=== PATIENT | female | born 1945 | race Caucasian/White ===

== ENCOUNTER 2017-10-02 06:27 | Inpatient (IN) | payer OTHER ==
[2017-09-29 11:47] LABS: APTT 25.1 Seconds (25.0-31.3)
[2017-09-29 11:53] LABS: URINE BILIRUBIN NEGATIVE (Negative); URINE BLOOD TRACE (Negative); URINE CLARITY CLEAR; URINE COLOR YELLOW; URINE GLUCOSE-RANDOM NEGATIVE (Negative); URINE KETONES NEGATIVE (Negative); URINE LEUKOCYTES-REFLEX NEGATIVE (Negative); URINE NITRITE-REFLEX NEGATIVE (Negative); URINE PROTEIN NEGATIVE (Negative); URINE SPECIFIC GRAVITY >= 1.030 (1.005-1.030); URINE UROBILINOGEN 0.2 E.U./dl (0.2-1.0)
--- NOTE | 2017-09-29 13:46 | EKG ---
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1945 Requested By: Jose Carlos Clayton Order Number: [id number] Reading MD: Abdias Naqvi Measurements Intervals [place] Rate: 77 P: 38 NV: 154 QRS: -36 QRSD: 89 T: 18 QT: 404 QTc: 458 Interpretive Statements Sinus rhythm Probable left atrial enlargement Left ventricular hypertrophy No previous ECG available for comparison Electronically Signed On 09-29-2017 13:45:57 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
[~2017-10-02] VITALS: Ht 170.2 cm; Wt 81.6 kg
[~2017-10-02 06:27] MED LIST: LEVOXYL25 MCG PO; PREDNISONE 20 M20 MG PO
[2017-10-02 13:58] VITALS: BP 148/74
--- NOTE | 2017-10-02 18:24 | NUR ---
ASSUMED CARE OF PATIENT AFTER TRANSFER FROM PACU AT 1815. ASSESSMENT COMPLETED AND CHATED. VSS ON 2 LITERS 02. PATIENT ORIENTED TO ROOM. FLUIDS STARTED AND INFUSING ORDERED. NO COMPLAINTS OF PAIN OR NAUSEA AT THIS TIME. PATIENT HAS BULKY DRESSING TO LEFT KNEE; CLEAN DRY AND INTACT. POLAR PACK APPLIED OVER DRESSING. HEMOVAC IN PLACE AND PATENT. CALL LIGHT IS WITHIN REACH. NURSING WILL CONTINUE TO MONITOR.
[2017-10-02 18:29] VITALS: BP 147/74
[2017-10-03] VITALS: BP 149/86
[2017-10-03 03:48] VITALS: BP 112/70
[2017-10-03 04:34] LABS: HEMATOCRIT 35.8 % (37.0-47.0); HEMOGLOBIN 12.2 gm/dL (12.0-15.0)
--- NOTE | 2017-10-03 04:54 | NUR ---
PATIENT ORIENTED X4 ON HOURLY ROUNDS. VOIDING ADEQUATELY PER BEDPAN. PAIN CONTROLLED WITH ORAL MEDICATIONS. DRESSING TO LEFT KNEE CLEAN, DRY AND INTACT WITH POLAR CARE IN PLACE. VITALS STABLE ON 2L, CAPNO. CONTINUE TO MONITOR.
[2017-10-03 08:15] VITALS: BP 130/71
--- NOTE | 2017-10-03 12:46 | NUR ---
RECIEVED O.T. EVAL AND TX ORDER. WILL DEFER TO P.T. AND NURSING AT THIS TIME. PLEASE ORDER FURTHER O.T. SERVICES IF NEEDED.
--- NOTE | 2017-10-03 13:04 | NUR ---
CM ASSESSMENT: Pt is A&O. Resides at home with her . Normally independent with ADLS. Pt admitted for left knee DJD. Pt stated that she has 11 stairs to get into her home and is concerned with how she will get into her home. After discussing options, Pt states that she thinks that she will be able to enter through her garage, because the stairs are carpeted. Pt has her own walker in her room. HH to be set up through [facility] [phone], [phone]. DC orders, facesheet, H&P, and orth orders to be faxed to [facility] at [facility]. Pt anticipates that she will be ready to sc tomorrow. Following.
[2017-10-03 16:00] VITALS: BP 115/62
--- NOTE | 2017-10-03 16:41 | NUR ---
PATIENT REMAINED ALERT AND ORIENTED X'S 4. VITAL SIGNS AND SPO2 STABLE. IV CLEAN, FLUSHING FLUIDS. TOLERATED DIET, NO NAUSEA AND VOMITING. PAIN WELL CONTROLLED WITH PAIN MEDS. VOIDED WITHOUT ISSUE. COMPLETED CPM 0-55 DEGREES. HEMOVAC PULLED THIS MORNING. COMPLETED PT/OT, WALKED THE HALLS. POLAR CARE, YELLOW SOCKS, TEDS, SCD'S IN PLACE. COMPLETED HOURLY ROUNDING. CALL LIGHT WITHIN REACH. WILL CONTINUE TO MONITOR.
[2017-10-03 20:00] VITALS: BP 149/75
[2017-10-04 00:40] VITALS: BP 112/59
[2017-10-04 03:31] VITALS: BP 112/59
[2017-10-04 04:12] LABS: HEMOGLOBIN 11.6 gm/dL (12.0-15.0)
[2017-10-04 08:05] VITALS: BP 110/65
--- NOTE | 2017-10-04 08:08 | NUR ---
Alert and oriented x 4. L knee dressing intact with polarcare in place. She was a 10/10 at start of shift but we have been medicating by giving something every 2 hours. This am she rates pain at 2 or 3. She is in CPM this am. She did sleep well.
[2017-10-04] MEDS ORDERED: LIDOPATCH1 EACH TOP (14:36)
[2017-10-04] MEDS ORDERED: ELIQUIS2.5 MG PO (14:36)
[2017-10-04] MEDS ORDERED: TRAMADOL 50 MG50 MG PO (14:36)
[2017-10-04] MEDS ORDERED: PERCOCET PO (14:36)
[2017-10-04 16:00] VITALS: BP 122/66
--- NOTE | 2017-10-04 16:55 | NUR ---
ASSUMED CARE OF PATIENT AFTER MORNING REPORT. ALERT AND ORIENTED X4. ASSESSMENT COMPLETED AND CHARTED. VSS ON ROOM AIR. PATIENT HAS HAD NO COMPLAINTS OF NAUSEA THIS SHIFT. PAIN HAS BEEN MANAGED WITH PAIN MEDICATION. PATIENT HAS BEEN USING THE CPM FOR AN HOUR TO TWO HOURS SEVERAL TIMES THIS SHIFT. PATIENT WORKED WELL WITH THERAPY AND DID STGAIRS TODAY. PATIENT STATES THAT SHE IS READY TO GO HOME BUT WANTS TO MAKE SURE HER HOME HEALTH IS SET UP BEFORE BEING DISCHARGED. DISCHARGE ORDERS ARE WRITTEN AND PRESCRIPTIONS ARE IN THE CHART. HOURLY ROUNDS HAVE BEEN MAINTAINED. CALL LIGHT IS WITHIN REACH. NURSING WILL CONTINUE TO MONITOR.
[2017-10-04 20:00] VITALS: BP 125/63
[2017-10-04 23:53] VITALS: BP 119/67
[2017-10-05 04:21] VITALS: BP 119/68
--- NOTE | 2017-10-05 05:08 | NUR ---
Alert and oriented x 4. L knee dressing intact with polarcare in place. She has had good pain relief with scheduled tramadol. She had as needed pain meds x 2. She is passing flatus but still hasn't had a BM, abdomen is soft. Vitals are stable. She has slept well.
[2017-10-05 08:18] VITALS: BP 124/62
[2017-10-05 09:35] VITALS: BP 124/62
[2017-10-05] MEDS ORDERED: COLACE100 MG PO (09:35)
[2017-10-05] MEDS ORDERED: OXYCODONE HCL5 MG PO (10:36)
--- NOTE | 2017-10-05 10:37 | NUR ---
PT.HAS DISCHARGE ORDERS FOR TODAY. CALLED IN ELIQUIS PRESCRIPTION WRITTEN TO [facility] [address] COPAY IS $195. INFORMED PT.AND . SHE SAID SHE COULD AFFORD THAT. EXPLALINED ALOT OF THE COST IS HER DEDUCTIBLE. PT.HAD WANTED TO USE [facility] FOR HOME HEALTH. THEY NO LONGER TAKE HER INSURANCE OF AUG. DISCUSSED AND SHE CHOSE [facility]. SPOKE WITH [facility] AND FAXED ORDERS,OP REPORT,FACE SHEET AND DISCHARE SUMMARY TO HER. PT.TO HAVE P.T. AND O.T.
--- NOTE | 2017-10-05 10:53 | NUR ---
PATIENT DISCHARGED TO HOME WITH HOME HEALTH AT THIS TIME. IV REMOVED. ELOQUIS AND LIDODERM READY AT PATIENTS PHARMACY. PATIENT AND SPOUSE VERBALIZE UNDERSTANDING OF DC INSTRUCTIONS. POLAR CARE, TEDS AND CPM SET.
--- NOTE | 2017-10-07 13:43 | S ---
[address] [address] SURGICAL PATH RPT PROCEDURE Name: MILA CANTU Room: [address] IN [facility].#: [id number] Admission: 10/02/17 Date of : 47 Discharge: 10/05/17 Report #: [id number] Path Case #: [id number] PATHOLOGY REPORT COLLECTION DATE: 10/02/2017 RECEIVED DATE: 10/05/2017 SUBMITTING PHYS: Dr. Jose Carlos Clayton OTHER PHYS: Dr. Nehemias Yo SPECIMEN(S) RECEIVED: A.Bone left knee * * * * * * * * * * * * FINAL DIAGNOSIS: Bone left knee, total knee replacement: - Benign meniscus and benign synovium with mild nonspecific chronic inflammation, focal osseous metaplasia and focal fibrinoid degeneration and benign bone and cartilage with severe degenerative changes. (ABDULAZIZ:domo; 10/07/2017) PATHOLOGIST: Jaren Keane M.D. REPORT ELECTRONICALLY SIGNED BY: Jaren Keane M.D. DATE/TIME: 10/07/2017 13:43 * * * * * * * * * * * * GROSS PATHOLOGY: Received in formalin labeled "Mila Cantu bone left knee" and consists of several fragments of bone consistent with tibial plateau and femoral condyle ranging in size from 1.9 cm-8 cm and aggregating 8.0 x 7.0 x 4.0 cm. Also within the container is fat and meniscus aggregating 6.5 x 6.0 x 2.0 cm. The articular surfaces of the bone fragments are granular and focally pitted. There are no areas of eburnation identified. Medical Representative sections are submitted A1-A2. A1 bone, decal A2 meniscus and fat. (OLIVIA; 10/06/2017) CLINICAL HISTORY: Left knee DJD INITIAL CPT CODE(S): A; 03424, 33012 Professional services performed by [place] [address] SURGICAL PATH RPT PROCEDURE Name: MILA CANTU Room: [address]#: [id number] Admission: 10/02/17 Date of : 47 Discharge: 10/05/17 Report #: [id number] Path Case #: [id number] [address] [place] [address] [facility] at [address] [place] [address], [facility] [address] [address]. [facility] [address] [place] [address] PHONE: [phone] DIRECTOR: Dane Singh M.D. * * * END OF REPORT * * *
--- NOTE | 2017-11-06 07:37 | OP ---
[address] [address] OPERATIVE REPORT Name: BALBIR MAIER Room: [address]#: [id number] Admission: 10/02/17 Attend Phys: Constantine Johnson Discharge: 10/05/17 Date of : 47 Report #: [id number] THIS REPORT FOR: //name// CC: Elver Solorzano DICTATED BY: Carlos Johnson DO DATE OF SERVICE: 10/02/2017 PREOPERATIVE DIAGNOSIS: Degenerative joint disease of the left knee. POSTOPERATIVE DIAGNOSIS: Degenerative joint disease of the left knee. OPERATION PERFORMED: Left total knee arthroplasty utilizing the Michelle Persona personalized knee system and the sizes are, a size 9 cruciate retained left femur, a size E stemmed 5-degree natural tibia, a 32 mm diameter poly patella and a size 10 medial congruent articular poly. SURGEON: Jose Carlos Clayton DO SLIDE FASTENER REPAIRER: Carlos Johnson DO SECOND CARDIAC/VASCULAR SONOGRAPHER: , DO ANESTHESIA: General endotracheal anesthetic. ESTIMATED BLOOD LOSS: 200 mL. COMPLICATIONS: None. DRAINS: One medium Hemovac. ANTIBIOTICS: 2 grams IV piggyback 30 minutes prior to surgery. GROSS PATHOLOGY: Surgical inspection of the left knee revealed eburnated bone to the medial compartment, some bone loss, varus deformity, hypertrophic synovitis, normal appearing joint effusion and osteophytic lipping and subchondral sclerosis. There were also degenerative changes to the patellofemoral joint as well as decreased joint space and loss of cartilage. INDICATIONS FOR PROCEDURE: The patient is a pleasant 72-year-old female who unfortunately has ongoing left knee pain refractory to conservative care of rest, ice, compression, nonsteroidal anti-inflammatories as well as corticosteroid injections. It was then recommended to undergo a [place] [address] OPERATIVE REPORT Name: BALBIR MAIER Room: [address]#: [id number] Admission: 10/02/17 Attend Phys: Constantine Johnson Discharge: 10/05/17 Date of : 47 Report #: [id number] arthroplasty and the patient wished to proceed with surgery. Therefore, the risks, benefits, treatment options, alternatives, complications and indications were discussed with the patient. Risks included but not limited to neurovascular injury, continued pain, continued bleeding, wound complications, infection, need for repeat surgery, rhabdomyolysis, damage to surrounding ligaments and neurovascular structures, DVT, PE, as well as inherent complication of anesthesia. The patient assumed the risks and wished to proceed with surgery. DESCRIPTION OF PROCEDURE: The patient was seen in the preoperative bay where the operative site was marked and initialed and consent was obtained and signed. The patient was transported to the operative suite and placed supine on the operating room table and then was given the benefit of general endotracheal anesthetic. Then, a well-padded tourniquet was applied on the left upper thigh. The left lower extremity was then thoroughly prepped with a 10-minute Hibiclens scrub, followed by alcohol rinse and ChloraPrep scrub x 2 and draped free in a normal sterile fashion. Surgery began with tourniquet inflation to 300 mmHg pressure. A midline skin incision was placed on the left knee and carried down through the skin and subcutaneous tissues. Next, a standard medial parapatellar arthrotomy was performed with a second scalpel and the patella was everted laterally and the knee was flexed to 110 degrees. Menisci and anterior and posterior cruciate ligaments were excised. Next, the anterior horn of the distal femur was placed in appropriate position with intramedullary alignment rimma set at 5 degrees of valgus angulation with distal femoral cutting block set to resect 7 mm, was advanced and held in position with pins. Distal femoral cut was made through the capsular block. Next, a distal femoral sizing guide was placed on the femur and it was sized to a 9. A 3-degrees of external rotation, drill holes were drilled through the guide. The 4-in-1 distal femoral cutting block was impacted through pre-drilled holes and distal femoral cut was made sequentially through the capsular block. The posterior osteophytes were removed with curved osteotome and rongeur off the posterior condyles. Next, the external tibial alignment guide was utilized referencing medial aspect of the tibial tubercle, mid talus and second toe. It was set to resect 2 mm from the low medial side and was held in position with pins. Proximal tibial cut was made through the capsular block protecting medial, lateral, and posterior structures. Next, the flexion and extension gaps were checked and 13 block was able to be flexed with excellent stability and symmetry. Flexion and extension gaps were checked and a 10 block was able to be placed with excellent stability and symmetry. The knee was then hyperflexed and the tibia was sized to an E baseplate. It was placed in appropriate rotation and held with pins. Femoral trial was impacted on distal femur and multiple trials were performed with different tibial bearings. A 10 mm spacer allowed full extension and flexion to 135 degrees, at which point, the patient had a posterior soft tissue impingement due to body habitus. The knee was extremely stable through the range of motion. Flexion and extension gaps were symmetric. The patella was then cut in a freehand fashion utilizing an oscillating saw. It was sized to a 32 mm patellar [facility] [address] [place] [address] OPERATIVE REPORT Name: BALBIR MAIER Miguel Room: [address] IN .R.#: [id number] Admission: 10/02/17 Attend Phys: Constantine Johnson Discharge: 10/05/17 Date of : 47 Report #: [id number] button and 3-peg holes were drilled through the guide. The trial was then placed and the knee was taken through range of motion and patella tracked well in the trochlear groove of the femur throughout. The cruciform punch was performed in the tibia through the trial baseplate and the trochlear groove was prepared in standard fashion after drilling through the lug nuts on the femoral side. Trial components were removed. Pulsatile lavage was carried out to all cut bony surfaces. Two bags of Michelle Palacos cement were mixed and pressurized into the interstices of bony cuts with small amount placed on the back surface of the final component. These were then impacted and held in compression until cement hardened. All excess cement was removed. Final trial reduction was performed with a 10 mm spacer was selected. Tourniquet was released and hemostasis was obtained with electrocautery, direct pressure. The deep tissue was injected with pain cocktail. The final tibial bearing was impacted on a cleansed and dried tibial tray and locked in position with locking mechanism. Then, a medium Hemovac drain was placed deep to the wound. The knee was flexed at 60 degrees. Quad and capsule were closed with an 0 Vicryl suture in a [id number]-fs-cnvov fashion, subcutaneous tissues were closed with 2-0 Vicryl suture in simple interrupted fashion and skin was reapproximated with a running subcuticular stitch of 2-0 V-Loc, followed by Dermabond. A sterile dressing of Flex Silver and DORIS hose were applied to the left lower extremity. The patient tolerated the procedure well and was transferred to the recovery room in stable condition. PQRS REQUIREMENTS: The patient received 2 grams of Ancef within 30 minutes prior to surgery and will receive two more doses postop, not to exceed 23 hours from completion of the surgery. Also, will receive DVT prophylaxis with Eliquis for 14 days, followed by aspirin b.i.d. for another 4 weeks as well as pneumatic foot pumps and thigh high DORIS hose. <ELECTRONICALLY SIGNED> By: Shaun Anderson DO 11/06/17 0737 0721 [id number] Carlos Clayton DO /belinda
== END 2017-10-05 11:07 | disposition home health service (06) | DRG 470 ==
LOC: M.PRE 06:27 → M.ORTHSURG 12:46 → M.TBA 12:46 → M.PRE 13:18 → M.ORTHSURG 18:10
PROVIDERS: Orthopaedic Surgery; ADMIT Internal Medicine
PROC: 0SRD0J9 Replacement of Left Knee Joint with Synthetic Substitute, Cemented, Open Approach (ICD-10-PCS; principal; 2017-10-02)
DX: M17.12 Unilateral primary osteoarthritis, left knee (principal); E03.9 Hypothyroidism, unspecified; F19.90 Other psychoactive substance use, unspecified, uncomplicated; Z79.899 Other long term (current) drug therapy; Z90.710 Acquired absence of both cervix and uterus; Z23 Encounter for immunization

== ENCOUNTER → 2018-11-26 | Outpatient (CLI) | payer OTHER ==
[~2018-11-26] MED LIST changes: +COLACE100 MG PO; +ELIQUIS2.5 MG PO; +LIDOPATCH1 EACH TOP; +OXYCODONE HCL5 MG PO; +PERCOCET PO; +TRAMADOL 50 MG50 MG PO
== END ==
LOC: M.RAD 14:09
DX: Z12.31 Encounter for screening mammogram for malignant neoplasm of breast (principal); Z13.820 Encounter for screening for osteoporosis; E03.9 Hypothyroidism, unspecified; M19.90 Unspecified osteoarthritis, unspecified site; Z90.722 Acquired absence of ovaries, bilateral; Z78.0 Asymptomatic menopausal state

== ENCOUNTER → 2020-04-06 | Outpatient (CLI) | payer OTHER | LOC: M.RAD 10:23 | PROVIDERS: ATTEND Nurse Practitioner Primary Care | DX: Z12.31 Encounter for screening mammogram for malignant neoplasm of breast (principal) ==

== ENCOUNTER → 2021-01-02 | Outpatient (CLI) | payer OTHER | LOC: M.NUC 07:26 | PROVIDERS: ATTEND Nurse Practitioner Primary Care | DX: K80.00 Calculus of gallbladder with acute cholecystitis without obstruction (principal) ==